=== PATIENT | female | born 1955 | race Two or more races ===

== ENCOUNTER 2018-04-26 09:49 | Outpatient (CLI) | payer OTHER ==
[~2018-04-26 09:49] MED LIST: AMBIEN CR12.5 MG/BL; CELEXA10 MG; KETO10TA2 PO; NEURONTIN800 MG; OMEPRAZOLE20 MG; WELLBUTRIN75 MG
== END 2018-04-26 16:19 | disposition home or self-care (01) ==
LOC: SONOGRAMA 09:49 → MAMO-SONO 10:15 → SONOGRAMA 16:19
DX: M25.511 Pain in right shoulder (principal)

== ENCOUNTER 2018-06-17 14:33 | Emergency (ER) | payer OTHER ==
[~2018-06-17] VITALS: Ht 160 cm; Wt 102.1 kg
== END 2018-06-17 15:39 | disposition home or self-care (01) ==
LOC: ER 14:33
DX: L02.416 Cutaneous abscess of left lower limb (principal)

== ENCOUNTER 2018-07-22 09:29 | Outpatient (CLI) | payer OTHER | END 2018-07-22 09:37 | disposition home or self-care (01) | LOC: NUCLEAR 09:29 | DX: I73.9 Peripheral vascular disease, unspecified (principal) ==

== ENCOUNTER 2018-07-23 13:46 | Outpatient (CLI) | payer OTHER | END 2018-07-23 13:57 | disposition home or self-care (01) | LOC: NUCLEAR 13:46 | DX: I80.00 Phlebitis and thrombophlebitis of superficial vessels of unspecified lower extremity (principal) ==

== ENCOUNTER 2020-05-05 08:17 | Outpatient (CLI) | payer OTHER | END 2020-05-05 08:23 | disposition home or self-care (01) | LOC: TOM 08:17 | PROVIDERS: ATTEND Specialist | DX: K57.32 Diverticulitis of large intestine without perforation or abscess without bleeding (principal); J45.998 Other asthma ==

== ENCOUNTER 2022-05-06 13:22 | Emergency (ER) | payer OTHER ==
[~2022-05-06] VITALS: Ht 160 cm; Wt 104.3 kg
[2022-05-06] MEDS ORDERED: PEPCID AC20 MG PO ×2 (13:53→23:07)
== END 2022-05-06 23:44 | disposition home or self-care (01) ==
LOC: ER 13:22
DX: M54.50 Low back pain, unspecified (principal); Z88.8 Allergy status to other drugs, medicaments and biological substances

== ENCOUNTER → 2023-04-12 | Outpatient (CLI) | payer OTHER ==
[~2023-04-12] MED LIST changes: +PEPCID AC20 MG PO
== END | disposition home or self-care (01) ==
LOC: TOM 07:12
PROVIDERS: ATTEND Specialist
DX: K57.01 Diverticulitis of small intestine with perforation and abscess with bleeding (principal)

== ENCOUNTER → 2023-11-01 | Outpatient (CLI) | payer OTHER | END | disposition home or self-care (01) | LOC: SONOGRAMA 10:39 | DX: M65.271 Calcific tendinitis, right ankle and foot (principal); M65.272 Calcific tendinitis, left ankle and foot ==

== ENCOUNTER 2024-12-05 12:33 | Outpatient (CLI) | payer OTHER | END 2024-12-05 12:39 | disposition home or self-care (01) | LOC: MAMO-SONO 12:33 | PROVIDERS: ATTEND Internal Medicine | DX: M54.51 Vertebrogenic low back pain (principal); M19.041 Primary osteoarthritis, right hand; M19.042 Primary osteoarthritis, left hand; M76.72 Peroneal tendinitis, left leg | CPT/HCPCS: 73721 ==

== ENCOUNTER 2025-02-07 08:23 | Outpatient (CLI) | payer OTHER | END 2025-02-07 08:25 | disposition home or self-care (01) | LOC: RAD 08:23 | PROVIDERS: ATTEND Podiatrist Foot Surgery | DX: M20.41 Other hammer toe(s) (acquired), right foot (principal); M20.42 Other hammer toe(s) (acquired), left foot ==

== ENCOUNTER 2025-04-02 11:00 | Outpatient (CLI) | payer OTHER | END 2025-04-02 11:04 | disposition home or self-care (01) | LOC: RAD 11:00 | PROVIDERS: ATTEND Podiatrist Foot Surgery | DX: M20.11 Hallux valgus (acquired), right foot (principal) ==

== ENCOUNTER 2025-05-14 11:20 | Outpatient (CLI) | payer OTHER | END 2025-05-14 11:24 | disposition home or self-care (01) | LOC: RAD 11:20 | PROVIDERS: ATTEND Chiropractor | DX: M54.2 Cervicalgia (principal) ==

== ENCOUNTER 2025-05-16 17:53 | Emergency (ER) | payer OTHER ==
[~2025-05-16] VITALS: Ht 160 cm; Wt 101.6 kg
[2025-05-16] MEDS ORDERED: PROTONIX40 MG PO (17:58)
[2025-05-16] MEDS ORDERED: KETOROLAC TROMETHAMINE 30 MG VIAL IV ONE (19:00)
[2025-05-16] MEDS ORDERED: KETOROLAC TROMETHAMINE 30 MG VIAL ONE (19:13)
[2025-05-16 19:40] LABS: BASO % 0.5 % (0.1-1.2); EOS # 0.21 (0.04-0.54); EOS % 3.3 % (0.7-7.0); LYMPH # 1.08 (1.18-3.74); LYMPH % 16.9 % (19.3-53.1); MEAN PLATELET VOLUME 9.70 fl (9.4-12.4); MONO # 0.34 (0.24-0.82); MONO % 5.3 % (4.7-12.5); NEUT # 4.70 (1.56-6.13); NEUT % 73.7 % (34.0-71.1); RED CELL DISTRIBUTION WIDTH 12.3 % (11.6-14.4)
[2025-05-16 20:05] LABS: INR 0.99
[2025-05-16 20:25] LABS: URINE BILIRRUBIN NEGATIVE (NEGATIVE); URINE BLOOD LARGE; URINE GLUCOSE NEGATIVE (NEGATIVE); URINE KETONE NEGATIVE (NEGATIVE); URINE LEUKOCYTE TRACE; URINE NITRATE NEGATIVE; URINE PROTEIN NEGATIVE (NEGATIVE); URINE UROBILINOGEN 0.2 E.U./dl
[2025-05-16 20:28] LABS: ALT/SGPT 30.0 U/L (12-78); AST/SGOT 35.0 U/L (15-37); BILIRUBIN TOTAL 0.52 mg/dL (0.3-1.2); BUN CREA RATIO 19.0 (7.0-25.0); CREATININE SERUM 0.67 mg/dL (0.55-1.02); GFR 86.52; GLOBULINA 4.0 G/DL (2.4-3.5); GLUCOSE FASTING 117.0 mg/dL (65-100); OSMOLALITY SERUM 281.0 MOSM/KG (275-295)
[2025-05-16 20:47] LABS: URINE COLOR YELLOW
[2025-05-16 20:48] LABS: URINE APPEARANCE SL CLOUDY; URINE RBC LOADED /HPF
[2025-05-16 20:49] LABS: URINE BACTERIA FEW; URINE CRYSTALS NEGATIVE /HPF; URINE MUCUS NEGATIVE
[2025-05-16] MEDS ORDERED: METRONIDAZOLE500 MG PO (21:38)
[2025-05-16] MEDS ORDERED: PROBIOTIC1 EAC2 PO (21:38)
[2025-05-16] MEDS ORDERED: CIPRO500 MG PO (21:38)
[2025-05-16] MEDS ORDERED: PEPCID AC20 MG PO (21:38)
== END 2025-05-16 22:03 | disposition home or self-care (01) ==
LOC: ER 17:53
PROVIDERS: General Practice
DX: M54.89 Other dorsalgia (principal); K57.30 Diverticulosis of large intestine without perforation or abscess without bleeding; N28.1 Cyst of kidney, acquired; I70.8 Atherosclerosis of other arteries; M79.7 Fibromyalgia; R11.0 Nausea; Z88.8 Allergy status to other drugs, medicaments and biological substances
CPT/HCPCS: 36415; 74176; 96365; 99283; J1885